=== PATIENT | male | born 1945 | race Caucasian/White ===

== ENCOUNTER 2017-03-09 11:17 | Emergency (ER) | payer OTHER, MEDICARE ==
[~2017-03-09] VITALS: Ht 182.9 cm; Wt 94.0 kg
[2017-03-09 11:20] VITALS: BP 166/87; PULSE 60; RESP 15; TEMP 97.6; O2SAT 97
[2017-03-09] MEDS ORDERED: ALLO300T2 PO (11:56)
[2017-03-09] MEDS ORDERED: VALA1TAB PO (11:56)
[2017-03-09] MEDS ORDERED: FINA5TAB2 PO (11:56)
[2017-03-09] MEDS ORDERED: FENO160T PO (11:56)
[2017-03-09] MEDS ORDERED: TAMS0.4C4 PO (11:56)
[2017-03-09] MEDS ORDERED: POTA10CA PO (11:56)
[2017-03-09] MEDS ORDERED: ASPI81CH37 CHEW (11:58)
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
[2017-03-09] MEDS ORDERED: IBUP-232 PO (13:52)
[2017-03-09] MEDS ORDERED: ORPH100T99 PO (13:52)
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
== END 2017-03-09 15:05 | disposition home or self-care (01) ==
LOC: NEPK 11:17
DX: S16.1XXA Strain of muscle, fascia and tendon at neck level, initial encounter (principal); S40.012A Contusion of left shoulder, initial encounter; V43.52XA Car driver injured in collision with other type car in traffic accident, initial encounter; Y93.89 Activity, other specified; Y92.410 Unspecified street and highway as the place of occurrence of the external cause; Y99.8 Other external cause status
CPT/HCPCS: 72125; 73030; 99284; L0150